=== PATIENT | male | born 1960 | race Caucasian/White ===

== ENCOUNTER 2019-11-23 23:04 | Emergency (ER) | payer OTHER ==
[~2019-11-23] VITALS: Ht 167.6 cm; Wt 88.9 kg
[2019-11-23 23:09] VITALS: Ht 167.6 cm; Wt 88.9 kg
[2019-11-24 03:17] LABS: BASOPHIL % 0.8 % (0-2); PLATELET COUNT 183 x10^3mcL (130-400)
[2019-11-24 03:23] LABS: CALCIUM 9.1 mg/dL (8.5-10.1); CARBON DIOXIDE 24.7 mmol/L (21-32); CHLORIDE SERUM 104 mmol/L (98-107); CREATININE SERUM 0.9 mg/dL (0.7-1.3); GFR1 > 60 mL/min; GLUCOSE SERUM 95 mg/dL (74-106); SODIUM SERUM 141 mmol/L (136-145)
[2019-11-24 03:24] LABS: FREE T4 0.91 ng/dL (0.76-1.46)
[2019-11-24 03:57] VITALS: BP 111/64
== END 2019-11-24 03:57 | disposition home or self-care (01) ==
LOC: ED 23:04
PROVIDERS: Emergency Medicine
DX: R00.2 Palpitations (principal); I10 Essential (primary) hypertension; E78.00 Pure hypercholesterolemia, unspecified
CPT/HCPCS: 36415; 84439; J7030; Q0092